=== PATIENT | female | born 1995 | race Caucasian/White ===

== ENCOUNTER 2018-07-30 22:46 | Emergency (ER) | payer SELFPAY ==
[2018-07-30 22:58] VITALS: RESP 18
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
[2018-07-31 02:46] VITALS: BP 123/78; PULSE 74; TEMP 98.3; O2SAT 98
== END 2018-07-31 02:40 | disposition home or self-care (01) ==
LOC: C.ER 22:46
DX: F41.9 Anxiety disorder, unspecified (principal)